=== PATIENT | female | born 1955 ===

== ENCOUNTER 2018-07-14 07:36 | Day surgery (SDC) | payer BC ==
[2018-07-14] MEDS: NA CHLORIDE 0.9% 1,000 ML ONE ×2 (08:10→08:39)
[2018-07-14] MEDS ORDERED: PROPOFOL 200 MG/20 ML VIAL IV ONE (08:34)
[2018-07-14] MEDS ORDERED: LIDOCAINE 1% MPF 5 ML VIAL ONE (08:34)
--- NOTE | 2018-07-14 09:20 | ENDO RPT ---
[address], [address] COLONOSCOPY PROCEDURE REPORT EXAM DATE: 07/14/2018 PATIENT NAME: Darlene Christensen MR #: [id number] BIRTHDATE: 1955 ATTENDING: Jack Brown DR STATUS: outpatient MEDICAL PHYSICS TEACHER: Ebony Gore RN, Caden Cole Tech, and Valery Jaimes INDICATIONS: The patient is a 63 yr old Female here for a colonoscopy due to colon cancer screening PROCEDURE PERFORMED: Colonoscopy with biopsy - cold polypectomy MEDICATIONS: Per Anesthesia. ESTIMATED BLOOD LOSS: None CONSENT: The patient understands the risks and benefits of the procedure and understands that these risks include, but are not limited to: sedation, allergic reaction, infection, perforation and/or bleeding. Alternative means of evaluation and treatment include, among others: physical exam, x-rays, and/or surgical intervention. The patient elects to proceed with this endoscopic procedure. DESCRIPTION OF PROCEDURE: During intra-op preparation period all mechanical medical equipment was checked for proper function. Hand hygiene and appropriate measures for infection prevention was taken. Procedure, possible complications, alternatives including, but not limited to possibility of bleeding, perforation, tear, infection, sepsis, need for surgery, need for blood transfusion, were explained to the patient. After the risks, benefits and alternatives of the procedure were thoroughly explained, Informed consent was verified, confirmed and timeout was successfully executed by the treatment team. The patient was placed in the left lateral position. A digital rectal exam was performed and revealed internal hemorrhoids. After appropriate level of anesthesia, the scope was passed. The EC-[id number] ([id number]) endoscope was introduced through the anus and advanced to the cecum, which was identified by both the appendix and ileocecal valve. The quality of the prep was poor. The instrument was then slowly withdrawn as the colon was fully examined. Scope withdrawal time was 10 minutes. COLON FINDINGS: Severe diverticulosis was noted throughout the entire examined colon. No bleeding was noted from the diverticulosis. A small smooth and polypoid shaped semi-pedunculated polyp with a mucous cap and a friable surface was found at the cecum. A polypectomy was performed with cold forceps. The resection was complete, the polyp tissue was completely retrieved and sent to histology. Small internal hemorrhoids were found. Retroflexed views revealed no abnormalities. The scope was then completely withdrawn from the patient and the procedure terminated. ADVERSE EVENTS: There were no complications. IMPRESSIONS: 1. Severe diverticulosis was noted throughout the entire examined colon 2. Small semi-pedunculated polyp was found at the cecum; polypectomy was performed with cold forceps 3. Small internal hemorrhoids RECOMMENDATIONS: 1. avoid NSAIDS for 2 weeks 2. await biopsy results 3. follow-up: office 2 week(s) 4. hemorrhoidal hygiene 5. low fiber / diverticular diet RECALL: Return in 3 year(s) for Colonoscopy, pending biopsy results. Poor Prep Jack Brown DR eSigned: Jack Brown DR 07/14/2018 9:19 AM cc: CPT CODES: ICD9 CODES: PATIENT NAME: Darlene Christensen MR#: [id number]
== END 2018-07-14 10:05 | disposition home or self-care (01) ==
LOC: OR 07:36
PROVIDERS: ATTEND Surgery
PROC: 0DBH8ZX Excision of Cecum, Via Natural or Artificial Opening Endoscopic, Diagnostic (ICD-10-PCS; principal; 2018-07-14 08:30)
DX: Z12.11 Encounter for screening for malignant neoplasm of colon (principal); D12.0 Benign neoplasm of cecum; K57.30 Diverticulosis of large intestine without perforation or abscess without bleeding; K64.8 Other hemorrhoids; E11.9 Type 2 diabetes mellitus without complications; M35.9 Systemic involvement of connective tissue, unspecified; Z79.4 Long term (current) use of insulin; Z79.899 Other long term (current) drug therapy
CPT/HCPCS: 82962; 88305; J2704; J7030